=== PATIENT | female | born 1995 | race Caucasian/White ===

== ENCOUNTER 2021-08-11 08:03 | Outpatient (CLI) | payer BC ==
[2021-08-11 09:57] LABS: #Eosinphils 0.1 10x3/uL (0.0-0.5); #Monocytes 0.3 10x3/uL (0.0-1.1); #Neutrophils 3.4 10x3/uL (1.5-8.4); %Basophils 0.5 % (0.0-2.0); %Eosinophils 0.8 % (0.0-6.0); %Lymphocytes 38.1 % (18.0-47.0); %Monocytes 4.8 % (0.0-10.0); %Neutrophils 55.6 % (40.0-75.0); Hemoglobin 14.4 g/dL (12.0-15.5); Mean Corpuscular HGB CONC 32.7 g/dL (32.0-36.0); Mean Corpuscular Volume 85.4 fl (81.6-98.3); Mean Platelet Volume 9.6 fl (7.4-10.4); Platelet Count 332 10x3/uL (150-450); Red Blood Cell (RBC) Count 5.15 10x6/uL (3.90-5.03); White Blood Cell (WBC) Count 6.1 10x3/uL (3.5-10.5)
[2021-08-11 10:24] LABS: BHCG - Serum Negative (NEGATIVE); Pregs Control Background? CLEAR/WHITE (CLR/WHITE); Pregs Control Bar Appear? YES (CONTROL BAR)
[2021-08-11 20:43] LABS: SARS-CoV-2 PCR by NAA Not Detected (NotDetected)
== END 2021-08-11 08:04 | disposition home or self-care (01) ==
LOC: LABBT 08:03
PROVIDERS: ATTEND Orthopaedic Surgery
DX: Z01.812 Encounter for preprocedural laboratory examination (principal); Z20.822 Contact with and (suspected) exposure to COVID-19
CPT/HCPCS: 84703; 85025; U0003; U0005

== ENCOUNTER 2021-08-12 10:41 | Day surgery (SDC) | payer BC ==
[2021-08-11 08:45] VITALS: BMI 33.2
[2021-08-12] MEDS ORDERED: Lidocaine 1% MPF 2 ML VIAL ONE (11:34)
[2021-08-12] MEDS ORDERED: Midazolam HCl 2 mg/2 ml Vial ONE (12:04)
[2021-08-12] MEDS ORDERED: ceFAZolin 2 GM/DEX 5% 100 ML BAG ONE (12:09)
[2021-08-12] MEDS ORDERED: Fentanyl 100 MCG/2 ML VIAL ONE ×3 (12:11→15:27)
[2021-08-12] MEDS ORDERED: Dexamethasone 20 MG/5 ML VIAL ONE (13:03)
[2021-08-12] MEDS ORDERED: Lidocaine 1% PF 5 ML VIAL ONE (13:03)
[2021-08-12] MEDS ORDERED: Ketorolac Tromethamine 30 MG/ML VIAL ONE (13:03)
[2021-08-12] MEDS ORDERED: Ondansetron PF 4 MG/2 ML Vial ONE (13:03)
[2021-08-12] MEDS ORDERED: Ropivacaine 0.5% HCl/PF (150 MG/30 ML VIAL) ONE (13:03)
[2021-08-12] MEDS ORDERED: PROPOFOL 200 MG/20 ML VIAL ONE (13:03)
[2021-08-12] MEDS ORDERED: Bupivacaine 0.25% 10 ML VIAL ONE (13:23)
[2021-08-12] MEDS ORDERED: Bupivacaine PF 0.5% 30 ML VIAL ONE (13:23)
[2021-08-12] MEDS ORDERED: EPINEPHrine 1 MG/ML AMP ONE (13:25)
[2021-08-12] MEDS ORDERED: Meperidine HCl/PF 25 MG/ML VIAL ONE (15:14)
[2021-08-12] MEDS ORDERED: Promethazine HCl 25 MG/ML VIAL ONE (16:57)
== END 2021-08-12 18:03 | disposition home or self-care (01) ==
LOC: SDC 10:41
PROVIDERS: ATTEND Orthopaedic Surgery
PROC: 0PRH0JZ Replacement of Right Radius with Synthetic Substitute, Open Approach (ICD-10-PCS; principal; 2021-08-12)
PROC: 3E0T3BZ Introduction of Anesthetic Agent into Peripheral Nerves and Plexi, Percutaneous Approach (ICD-10-PCS; principal; 2021-08-12)
DX: S52.121A Displaced fracture of head of right radius, initial encounter for closed fracture (principal); V00.141A Fall from scooter (nonmotorized), initial encounter
CPT/HCPCS: 76000; C1713; C1776; J0171; J1100; J1885; J2175; J2250; J2405; J2550; J2704; J2795; J3010; S0020